=== PATIENT | female | born 1975 | race Caucasian/White ===

== ENCOUNTER 2017-07-27 20:46 | Emergency (ER) | payer SELFPAY ==
[2017-07-27 20:48] VITALS: BP 182/90; PULSE 108; RESP 18; TEMP 98.8; O2SAT 98
--- NOTE | 2017-07-27 21:08 | PD ---
HPI Chief Complaint: Back/ Neck Pain or Injury Time Seen by Provider: 21:03 Travel History International Travel<30 days: No Contact w/Intl Traveler<30days: No Traveled to known affect area: No History of Present Illness HPI 41-year-old female with history of sciatica presents to the emergency department for evaluation of exacerbation of left-sided sciatica pain. Pain is an 8 out of 10, sharp at times. Patient states she's been unable to get into pain management and she feels as though her primary care is giving her the "run around." Reports pain in her left buttock moving to her leg. Denies any saddle paresthesia, loss of bowel or bladder, lower extremity weakness. This is pain consistent with previous exacerbations. Denies any fever or chills. Does not call injury. No other symptoms to report. PFSH Past Medical History Cardiovascular Problems: Yes (HYPERTENSION) Hypertension: Yes Neurologic: Yes ([place]) Tetanus Vaccination: Unknown Influenza Vaccination: No ?: Not Social History Alcohol Use: Yes (occasional) Tobacco Use: Yes Substance Use: No Allergies-Medications (Allergen,Severity, Reaction): Coded Allergies: lisinopril (Verified Allergy, Severe, 07/27/17) prednisone (Verified Allergy, Severe, 07/27/17) metoprolol (Verified Allergy, Unknown, 07/27/17) Reported Meds & Prescriptions Reported Meds & Active Scripts Active Tramadol (Tramadol HCl) 50 Mg Tab 50 Mg PO Q8H PRN Robaxin (Methocarbamol) 500 Mg Tab 500 Mg PO QID PRN Ibuprofen 800 Mg Tab 800 Mg PO Q8H PRN Review of Systems Except as stated in HPI: all other systems reviewed are Neg Physical Exam Narrative GENERAL: Well-nourished, well-developed male patient, ambulatory and in no acute distress. SKIN: Focused skin assessment warm/dry. HEAD: Normocephalic. EYES: No scleral icterus. No injection or drainage. NECK: Supple, trachea midline. No JVD or lymphadenopathy. CARDIOVASCULAR: Tachycardic rate and rhythm without murmurs, gallops, or rubs. RESPIRATORY: Breath sounds equal bilaterally. No accessory muscle use. GASTROINTESTINAL: Abdomen soft, non-tender, nondistended. MUSCULOSKELETAL: No cyanosis, or edema. Tenderness elicited palpation over sacroiliac joint. Positive straight leg left lower extremity. Distal pulses are palpable. No hyperreflexia. No clonus. BACK: Nontender without obvious deformity. No CVA tenderness. Data Data Last Documented VS Vital Signs Date Time Temp Pulse Resp B/P (MAP) Pulse Ox O2 Delivery O2 Flow Rate FiO2 07/27/17 21:31 98 07/27/17 20:48 98.8 18 98 Room Air Orders Orders Splint Or Brace Apply/Monitor (07/27/17 21:06) Ketorolac Inj (Toradol Inj) (07/27/17 21:15) Orphenadrine Inj (Norflex Inj) (07/27/17 21:15) Brace Quick Draw Corset (07/27/17 ) MDM Medical Decision Making Medical Screen Exam Complete: Yes Emergency Medical Condition: Yes Medical Record Reviewed: Yes Differential Diagnosis Sciatica versus low back strain versus discogenic pain versus radiculopathy Narrative Course 41-year-old female presents to emergency room for evaluation a left sciatic pain. Physical exam and history are consistent with sciatica. Patient is treated for pain and provided a quick draw brace. She is counseled on care. She is encouraged to follow-up with her primary care provider and pain management and to return immediately with any acute worsening of symptoms. Diagnosis Primary Impression: Sciatica of left side Referrals: [facility] Primary Care Physician Patient Instructions: General Instructions, Sciatica (ED) Additional Instructions: Ice and/or warm moist heat may help to alleviate symptoms Wear brace when ambulatory. Do not wear brace at all times that this may weaken her core muscles, worsening your sciatica pain Follow-up with a primary care provider Seek pain management evaluation if symptoms persist Avoid heavy lifting, bending, and twisting Return immediately with any acute worsening of symptoms Med/Other Pt SpecificInfo: Prescription(s) given Scripts Tramadol (Tramadol) 50 Mg Tab 50 MG PO Q8H Y for PAIN GREATER THAN 6, #12 TAB 0 Refills Prov: Rasheeda Worley 07/27/17 Methocarbamol (Robaxin) 500 Mg Tab 500 MG PO QID Y for MUSCLE SPASM, #21 TAB 0 Refills Prov: Rasheeda Worley 07/27/17 Ibuprofen (Ibuprofen) 800 Mg Tab 800 MG PO Q8H Y for Pain/Inflammation, #30 TAB 0 Refills Prov: Rasheeda Worley 07/27/17 Disposition: 01 DISCHARGE HOME Condition: Stable Rasheeda Worley Jul 27, 2017 21:08
[2017-07-27] MEDS ORDERED: KETOROLAC TROMETHAMINE 60 MG/2 ML (IM) VIAL IM ONE (21:15)
[2017-07-27] MEDS ORDERED: ORPHENADRINE INJ 60 MG/2 ML AMP IM ONE (21:15)
[2017-07-27 21:31] VITALS: PULSE 98
[2017-07-27] MEDS ORDERED: IBUP800T23 PO (21:32)
[2017-07-27] MEDS ORDERED: TRAM50TA PO (21:32)
[2017-07-27] MEDS ORDERED: ROBA500T PO (21:32)
== END 2017-07-27 21:48 | disposition home or self-care (01) ==
LOC: NEPK 20:46
DX: M54.32 Sciatica, left side (principal); R00.0 Tachycardia, unspecified; I10 Essential (primary) hypertension; Z72.0 Tobacco use; Z88.5 Allergy status to narcotic agent; Z88.8 Allergy status to other drugs, medicaments and biological substances
CPT/HCPCS: 96372; 99284; J1885; J2360; L0627